=== PATIENT | male | born 1970 | race Caucasian/White ===

== ENCOUNTER 2017-11-29 19:45 | Observation (INO) | payer OTHER ==
[~2017-11-29] VITALS: Ht 182.9 cm; Wt 75.0 kg
--- NOTE | 2017-11-29 19:51 | PD ---
HPI Chief Complaint: NEURO Time Seen by Provider: 19:50 Travel History International Travel<30 days: No Contact w/Intl Traveler<30days: No Traveled to known affect area: No History of Present Illness HPI Patient has been having migraine over the past 2-3 days, and has been going to acupuncture today to try to help with that condition. Patient is also on propranolol, Zomig, and Topamax all for this migraine condition. Today over the last 90 minutes according to friend and patient both have been concerned about his trouble with recall and that he is not acting himself. Patient was able to ambulate himself onto the gurney in the emergency department, and he was also able to give the entire history himself. Remain symptom continues to be trouble with recall, including something as simple as trying to recall his office address. Per witness friend described that he looked like he was staring off into space and having trouble answering his questions, this is not usual of his migraines per patient. 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 NKDA PFSH Social History Tobacco Use: No Allergies-Medications (Allergen,Severity, Reaction): Coded Allergies: No Known Allergies (Unverified , 11/29/17) Review of Systems ROS Limitations: Other: (CONFUSION) General / Constitutional: No: Fever Eyes: No: Visual changes HENT: Positive: Headaches Cardiovascular: No: Chest Pain or Discomfort Respiratory: No: Shortness of Breath Gastrointestinal: No: Abdominal Pain Genitourinary: No: Dysuria Musculoskeletal: No: Pain Skin: No Rash Neurologic: No: Weakness Psychiatric: No: Depression Endocrine: No: Polydipsia Hematologic/Lymphatic: No: Easy Bruising Physical Exam Narrative GENERAL: SKIN: Warm and dry. HEAD: Atraumatic. Normocephalic. EYES: Pupils equal and round. No scleral icterus. No injection or drainage. ENT: No nasal bleeding or discharge. Mucous membranes pink and moist. NECK: Trachea midline. No JVD. CARDIOVASCULAR: Regular rate and rhythm. RESPIRATORY: No accessory muscle use. Clear to auscultation. Breath sounds equal bilaterally. GASTROINTESTINAL: Abdomen soft, non-tender, nondistended. MUSCULOSKELETAL: Extremities without clubbing, cyanosis, or edema. No obvious deformities. NEUROLOGICAL: Awake and alert. No obvious cranial nerve deficits. Motor grossly within normal limits. Five out of 5 muscle strength in the arms and legs. Normal speech. PSYCHIATRIC: Appropriate mood and affect; insight and judgment normal. Data Data Last Documented VS Vital Signs Date Time Temp Pulse Resp B/P (MAP) Pulse Ox O2 Delivery O2 Flow Rate FiO2 11/29/17 20:00 18 98 Room Air 11/29/17 20:00 73 11/29/17 19:58 98.9 173/105 (127) Orders Orders Electrocardiogram (11/29/17 19:55) Complete Blood Count With Diff (11/29/17 19:55) Comprehensive Metabolic Panel (11/29/17 19:55) Troponin I (11/29/17 19:55) B-Type Natriuretic Peptide (11/29/17 19:55) Prothrombin Time / Inr (Pt) (11/29/17 19:55) Act Partial Throm Time (Ptt) (11/29/17 19:55) Lipase (11/29/17 19:55) Urinalysis - C+S If Indicated (11/29/17 19:55) Thyroid Stimulating Hormone (11/29/17 19:55) Chest, Single Ap (11/29/17 19:55) Ct Brain W/O Iv Contrast(Rout) (11/29/17 19:55) Iv Access Insert/Monitor (11/29/17 19:55) Ecg Monitoring (11/29/17 19:55) Oximetry (11/29/17 19:55) Drug Screen, Random Urine (11/29/17 19:55) Alcohol (Ethanol) (11/29/17 19:55) Salicylates (Aspirin) (11/29/17 19:55) Tylenol (Acetaminophen) (11/29/17 19:55) Aspirin Chew (Aspirin Chew) (11/29/17 21:00) Us Carotid Arteries Comp Bilat (11/29/17 ) Mra Brain W/O Contrast (Cow) (11/29/17 ) Mri Brain W/O Contrast (11/29/17 ) Echo 2d Comp With Doppler (11/29/17 ) Labs Laboratory Tests Test 11/29/17 20:00 Prothrombin Time 10.7 SEC Prothromb Time International Ratio 1.1 RATIO Activated Partial Thromboplast Time 24.7 SEC Blood Urea Nitrogen 20 MG/DL Creatinine 1.30 MG/DL Random Glucose 99 MG/DL Total Protein 7.3 GM/DL Albumin 4.1 GM/DL Calcium Level 9.2 MG/DL Alkaline Phosphatase 72 U/L Aspartate Amino Transf (AST/SGOT) 16 U/L Alanine Aminotransferase (ALT/SGPT) 19 U/L Total Bilirubin 0.9 MG/DL Sodium Level 142 MEQ/L Potassium Level 3.8 MEQ/L Chloride Level 110 MEQ/L Carbon Dioxide Level 26.0 MEQ/L Anion Gap 6 MEQ/L Estimat Glomerular Filtration Rate 59 ML/MIN Troponin I LESS THAN 0.02 NG/ML B-Type Natriuretic Peptide LESS THAN 2 PG/ML Lipase 62 U/L Thyroid Stimulating Hormone 3rd Gen 1.320 uIU/ML Salicylates Level LESS THAN 1.7 MG/DL Acetaminophen Level LESS THAN 2.0 MCG/ML Ethyl Alcohol Level LESS THAN 3 MG/DL MDM Medical Decision Making Medical Screen Exam Complete: Yes Emergency Medical Condition: Yes Medical Record Reviewed: Yes Interpretation(s) Normal sinus rhythm 62 bpm some motion artifact however no evidence of any STEMI pattern. Some LVH pattern noted. Differential Diagnosis Complex migraine versus intracranial hemorrhage versus TIA versus brain mass versus aneurysm versus tox screen related Narrative Course Coagulation profile is within normal limits CT head read by radiologist as within normal limits Chest x-ray read by radiologist as no acute disease Salicylates Tylenol and alcohol negative Complete metabolic profile shows normal electrolytes, normal kidney/liver/ pancreas/TSH, negative troponin, negative beta natruretic peptide. CBC & BMP Diagram 11/29/17 20:00 Total Protein 7.3, Albumin 4.1, Calcium Level 9.2, Alkaline Phosphatase 72, Aspartate Amino Transf (AST/SGOT) 16, Alanine Aminotransferase (ALT/SGPT) 19, Total Bilirubin 0.9 Physician Communication Physician Communication Patient did not have any APHASIA/DYSARTHRIA or mutism, also did not have any severe NIH scale either so not a candidate for TPA. This was discussed with Dr. Hamilton who recommended admission for for TIA type workup including but not to be limited to MRI/mra of the brain, carotid ultrasound/echo and a neurology consultation. Diagnosis Primary Impression: TIA Admitting Information Admitting Physician Requests: Observation Tim Nelson MD Nov 29, 2017 19:51
[2017-11-29 19:58] VITALS: BP 173/105; PULSE 73; RESP 16; TEMP 98.9; O2SAT 98
[2017-11-29 20:00] VITALS: RESP 18; O2SAT 98
--- NOTE | 2017-11-29 20:12 | RADRPT ---
EXAM DATE/TIME: 11/29/2017 20:00 [facility] COMPARISON: No previous studies available for comparison. INDICATIONS : Altered mental status. RADIATION DOSE: 37.53 CTDIvol (mGy) MEDICAL HISTORY : None SURGICAL HISTORY : None. ENCOUNTER: Initial ACUITY: 1 day PAIN SCALE: 0/10 LOCATION: Bilateral head TECHNIQUE: Multiple contiguous axial images were obtained of the head. Using automated exposure control and adj ustment of the mA and/or kV according to patient size, radiation dose was kept as low as reasonably a chievable to obtain optimal diagnostic quality images. DICOM format image data is available electro nically for review and comparison. FINDINGS: CEREBRUM: The ventricles are normal for age. No evidence of midline shift, mass lesion, hemorrhage or acute in farction. No extra-axial fluid collections are seen. POSTERIOR FOSSA: The cerebellum and brainstem are intact. The 4th ventricle is midline. The cerebellopontine angle i s unremarkable. EXTRACRANIAL: The visualized portion of the orbits is intact. SKULL: The calvaria is intact. No evidence of skull fracture. CONCLUSION: Normal noncontrast head CT. Jason Calloway MD on November 29, 2017 at 20:10 Board Certified Radiologist. This report was verified electronically.
[2017-11-29 20:21] LABS: INTERNATIONAL NORMALIZED RATIO 1.1 RATIO; PROTHROMBIN TIME - PATIENT 10.7 SEC (9.8-11.6)
--- NOTE | 2017-11-29 20:21 | RADRPT ---
EXAM DATE/TIME: 11/29/2017 20:09 [facility] COMPARISON: No previous studies available for comparison. INDICATIONS : Short of breath and confusion. MEDICAL HISTORY : None. SURGICAL HISTORY : None. ENCOUNTER: Initial ACUITY: 1 day PAIN SCORE: 0/10 LOCATION: Bilateral chest FINDINGS: A single view of the chest demonstrates the lungs to be symmetrically aerated without evidence of mas s, infiltrate or effusion. The cardiomediastinal contours are unremarkable. Osseous structures are intact. CONCLUSION: Normal one view chest x-ray. Jason Calloway MD on November 29, 2017 at 20:19 Board Certified Radiologist. This report was verified electronically.
[2017-11-29 20:31] LABS: ALBUMIN 4.1 GM/DL (3.4-5.0); ALT (GPT) 19 U/L (12-78); AST (GOT) 16 U/L (15-37); BLOOD UREA NITROGEN 20 MG/DL (7-18); CALCIUM 9.2 MG/DL (8.5-10.1); CHLORIDE 110 MEQ/L (98-107); GLOMERULAR FILTRATION RATE 59 ML/MIN (>89); GLUCOSE,RANDOM 99 MG/DL (74-106); SODIUM (NA) 142 MEQ/L (136-145)
[2017-11-29 20:42] LABS: ALKALINE PHOSPHATASE 72 U/L (45-117); TOTAL BILIRUBIN ADULT 0.9 MG/DL (0.2-1.0); TOTAL PROTEIN 7.3 GM/DL (6.4-8.2); TROPONIN I LESS THAN 0.02 NG/ML (0.02-0.05)
[2017-11-29 21:00] LABS: ACETAMINOPHEN LESS THAN 2.0 MCG/ML (10.0-30.0)
[2017-11-29] MEDS ORDERED: ASPIRIN 81 MG CHEW TAB PO ONE (21:00)
[2017-11-29] MEDS ORDERED: DEXTROSE 50% IN WATER 50 ML VIAL(D50) IV PUSH PRN (21:30)
[2017-11-29] MEDS ORDERED: GLUCAGON 1 MG/ML VIAL OTHER PRN (21:30)
[2017-11-29] MEDS ORDERED: SODIUM CHLORIDE 0.9% FLUSH 10 ML FLUSH IV FLUSH PRN (21:30)
--- NOTE | 2017-11-29 21:57 | RADRPT ---
EXAM DATE/TIME: 11/29/2017 21:19 [facility] COMPARISON: No previous studies available for comparison. INDICATIONS : Transient ischemic attack. MEDICAL HISTORY : None. SURGICAL HISTORY : None. ENCOUNTER: Initial ACUITY: 2 days PAIN SCORE: 0/10 LOCATION: Bilateral neck PEAK SYSTOLIC VELOCITIES (cm/sec): ICA/CCA RATIO: Right: 0.8 Left: 0.8 ICA: Right: 75.0 Left: 79.0 CCA: Right: 95.1 Left: 101.6 ECA: Right: 58.0 Left: 85.4 VERTEBRAL: Right: 59.6 antegrade Left: 67.4 antegrade Elevated flow velocities and ICA/CCA ratios have been found to correlate with increased degrees of vessel stenosis, calculated as percentage of diameter relative to a normal segment of distal ICA/CCA FINDINGS: RIGHT CAROTID: No significant stenosis is visualized. The waveforms are within normal limits. LEFT CAROTID: No significant stenosis is visualized. The waveforms are within normal limits. VERTEBRAL ARTERIES: Antegrade flow is seen in both vertebral arteries. MISCELLANEOUS: None. CONCLUSION: Within normal limits. No significant plaque. No narrowing. Jason Calloway MD on November 29, 2017 at 21:55 Board Certified Radiologist. This report was verified electronically.
[2017-11-29] MEDS ORDERED: ZOMI5TAB2 SL (22:06)
[2017-11-29] MEDS ORDERED: PROP40TA3 PO (22:06)
[2017-11-29] MEDS ORDERED: SUCR1TAB PO (22:06)
[2017-11-29] MEDS ORDERED: TOPA50TA7 PO (22:06)
[2017-11-29] MEDS ORDERED: PANT20 PO (22:06)
--- NOTE | 2017-11-29 23:20 | HHI.HP ---
[facility] Unknown Admission Diagnosis TIA Diagnoses: Chief Complaint: confusion Travel History International Travel<30 Days: No Contact w/Intl Traveler <30 Da: No Traveled to Known Affected Are: No History of Present Illness 47 y/o male with a history of migraines since age 13, unsure if HTN, presented to the ED with complaints of confusion. 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 Patient states he was getting acupuncture done today for his back pain and chronic migraines along with a cupping treatment post acupuncture. Patient states there was no problems during the acupuncture and cupping treatment but after he became to feel a little more drowsy than normal. He felt confused and was unable to remember words or conversations. He was able to drive home from his appointment but does not remember driving home and felt very confused when he was texting his spouse. Upon arrival to his house his spouse noted he was not speaking right and he was constantly staring off into space, and made no sense when having a conversation. Upon examination patient states he feels a little more normal now and feels that it has mostly resolved but he does state that about an hour prior he did have trouble recalling his home medications. He sees Dr. Polanco for his chronic migraines. And states he was being treated at first with acupuncture for his migraines but decided to have his back pain treated as well since he was unsure of what he did to his back over the weekend. Denies any chest pain, sob. He denies having any weakness in his upper or lower extremities No history of seizures or recent illness. Neurologist: Collin Review of Systems Except as stated in HPI: all other systems reviewed are Neg Past Family Social History Past Medical History Migraines Gerd Past Surgical History Patient denies any surgical history Reported Medications Reported Meds & Active Scripts Active Reported Sucralfate 1 Gram Tab 1 Gm PO DIRECTED on empty stomach Protonix (Pantoprazole Sodium) 20 Mg Tab 20 Mg PO DAILY Topamax (Topiramate) 50 Mg Tab 50 Mg PO BID Zomig Zmt (Zolmitriptan) 5 Mg Tab 5 Mg SL ONCE PRN A second dose may be administered at least 2 hours after the first dose. Maximum dose 10 mg in 24 hours. Propranolol (Propranolol HCl) 40 Mg Tab 40 Mg PO Q12HR Allergies: Coded Allergies: No Known Allergies (Unverified , 11/29/17) Active Ordered Medications Current Medications Medications (Trade) Dose Ordered Sig/Cong Route Start Time Stop Time Status Last Admin (NS Flush) 2 ml BID IV FLUSH 11/30/17 09:00 (NS Flush) 2 ml UNSCH PRN IV FLUSH 11/29/17 21:30 (D50w (Vial) Inj) 50 ml UNSCH PRN IV PUSH 11/29/17 21:30 (Glucagon Inj) 1 mg UNSCH PRN OTHER 11/29/17 21:30 (Inderal) 40 mg Q12HR PO 11/30/17 09:00 (Topamax) 50 mg BID PO 11/30/17 09:00 (Protonix) 40 mg DAILY PO 11/30/17 09:00 Patient Own Medication PT OWN MED: ZOMIG ZMT 5... UNSCH PRN PO 11/30/17 00:15 Future Hold Family History Family history significant for HTN Social History Patient denies any tobacco, alcohol or illicit drug use Physical Exam Vital Signs Vital Signs Date Time Temp Pulse Resp B/P (MAP) Pulse Ox O2 Delivery O2 Flow Rate FiO2 11/29/17 20:00 18 98 Room Air 11/29/17 20:00 73 19 98 Room Air 11/29/17 19:58 98.9 73 16 173/105 (127) 98 Physical Exam GENERAL: This is a well-nourished, well-developed patient, in no apparent distress. SKIN: No rashes, ecchymoses or lesions. Cool and dry. HEAD: Atraumatic. Normocephalic. No temporal or scalp tenderness. EYES: Pupils equal round and reactive. ENT: Nose without bleeding, purulent drainage or septal hematoma. Airway patent. NECK: Trachea midline. No JVD or lymphadenopathy. CARDIOVASCULAR: Regular rate and rhythm without murmurs, gallops, or rubs. RESPIRATORY: Clear to auscultation. Breath sounds equal bilaterally. No wheezes , rales, or rhonchi. GASTROINTESTINAL: Abdomen soft, non-tender, nondistended. No hepato-splenomegaly , or palpable masses. No guarding. MUSCULOSKELETAL: Extremities without clubbing, cyanosis, or edema. No joint tenderness, effusion, or edema noted. No calf tenderness. NEUROLOGICAL: Awake and alert. Cranial nerves II through XII intact. Motor and sensory grossly within normal limits. Five out of 5 muscle strength in all muscle groups. Normal speech. Laboratory Laboratory Tests Test 11/29/17 20:00 Prothrombin Time 10.7 Prothromb Time International Ratio 1.1 Activated Partial Thromboplast Time 24.7 Blood Urea Nitrogen 20 Creatinine 1.30 Random Glucose 99 Total Protein 7.3 Albumin 4.1 Calcium Level 9.2 Alkaline Phosphatase 72 Aspartate Amino Transf (AST/SGOT) 16 Alanine Aminotransferase (ALT/SGPT) 19 Total Bilirubin 0.9 Sodium Level 142 Potassium Level 3.8 Chloride Level 110 Carbon Dioxide Level 26.0 Anion Gap 6 Estimat Glomerular Filtration Rate 59 Troponin I LESS THAN 0.02 B-Type Natriuretic Peptide LESS THAN 2 Lipase 62 Thyroid Stimulating Hormone 3rd Gen 1.320 Salicylates Level LESS THAN 1.7 Acetaminophen Level LESS THAN 2.0 Ethyl Alcohol Level LESS THAN 3 Result Diagram: 11/29/171999 Imaging Last Impressions Head CT 11/29/171954 Signed Impressions: Service Date/Time: Wednesday, November 29, 2017 20:00 - CONCLUSION: Normal noncontrast head CT. Jason Calloway MD Chest X-Ray 11/29/171954 Signed Impressions: Service Date/Time: Wednesday, November 29, 2017 20:09 - CONCLUSION: Normal one view chest x-ray. Jason Calloway MD Carotid Artery Ultrasound 11/29/17 0000 Signed Impressions: Service Date/Time: Wednesday, November 29, 2017 21:19 - CONCLUSION: Within normal limits. No significant plaque. No narrowing. Jason Calloway MD Caprini VTE Risk Assessment Caprini VTE Risk Assessment: No/Low Risk (score <= 1) Caprini Risk Assessment Model Point Value = 1 Point Value = 2 Point Value = 3 Point Value = 5 Age 41-60 Minor surgery BMI > 25 kg/m2 Swollen legs Varicose veins or History of unexplained or recurrent spontaneous Oral contraceptives or hormone replacement Sepsis (< 1 month) Serious lung disease, including pneumonia (< 1 month) Abnormal pulmonary function Acute myocardial infarction Congestive heart failure (< 1 month) History of inflammatory bowel disease Medical patient at bed rest Age 61-74 Arthroscopic surgery Major open surgery (> 45 min) Laparoscopic surgery (> 45 min) Malignancy Confined to bed (> 72 hours) Immobilizing plaster cast Central venous access Age >= 75 History of VTE Family history of VTE Factor V Leiden Prothrombin [id number] Lupus anticoagulant Anticardiolipin antibodies Elevated serum homocysteine Heparin-induced thrombocytopenia Other congenital or acquired thrombophilia Stroke (< 1 month) Elective arthroplasty Hip, pelvis, or leg fracture Acute spinal cord injury (< 1 month) Prophylaxis Regimen Total Risk Factor Score Risk Level Prophylaxis Regimen 0-1 Low Early ambulation 2 Moderate Order ONE of the following: *Sequential Compression Device (SCD) *Heparin 5000 units SQ BID 3-4 Higher Order ONE of the following medications: *Heparin 5000 units SQ TID *Enoxaparin/Lovenox 40 mg SQ daily (WT < 150 kg, CrCl > 30 mL/min) *Enoxaparin/Lovenox 30 mg SQ daily (WT < 150 kg, CrCl > 10-29 mL/min) *Enoxaparin/Lovenox 30 mg SQ BID (WT < 150 kg, CrCl > 30 mL/min) AND/OR *Sequential Compression Device (SCD) 5 or more Highest Order ONE of the following medications: *Heparin 5000 units SQ TID (Preferred with Epidurals) *Enoxaparin/Lovenox 40 mg SQ daily (WT < 150 kg, CrCl > 30 mL/min) *Enoxaparin/Lovenox 30 mg SQ daily (WT < 150 kg, CrCl > 10-29 mL/min) *Enoxaparin/Lovenox 30 mg SQ BID (WT < 150 kg, CrCl > 30 mL/min) AND *Sequential Compression Device (SCD) Assessment and Plan Problem List: (1) TIA (transient ischemic attack) ICD Code: G45.9 - Transient cerebral ischemic attack, unspecified (2) Migraine ICD Code: G43.909 - Migraine, unspecified, not intractable, without status migrainosus Assessment and Plan 47 y/o male with a history of migraines since age 13, unsure if HTN, presented to the ED with complaints of confusion. 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 TIA, acute Head CT reviewed and unremarkable Carotid ultrasound and unremarkable -2-D echo ordered -MRA/MRI brain ordered -NIH scale ordered, neuro checks -Consult neurology, patient known to Dr. Polanco -Lipid panel, A1c ordered -PT/OT/ST Migraines, chronic -Continue home medications to prior mate DVT prophylaxis: SCDs Discussed Condition With Patient and RN Frida Adams Nov 29, 2017 23:20
[2017-11-29] MEDS ORDERED: RABE1TAB PO (23:27)
[2017-11-30] MEDS ORDERED: ZOLMITRIPTAN 5 MG SL PRN (00:15)
[2017-11-30] MEDS ORDERED: ZOLMITRIPTAN 5 MG PO PRN (00:15)
[2017-11-30 06:38] VITALS: BP 107/61; PULSE 71; RESP 14; TEMP 97.9; O2SAT 96
[2017-11-30 08:05] LABS: CHOLESTEROL 154 MG/DL (120-200)
[2017-11-30 08:08] LABS: CHOLESTEROL/ HDL RATIO 4.03 RATIO; HDL CHOLESTEROL 38.2 MG/DL (40.0-60.0); LDL CHOLESTEROL 91 MG/DL (0-99); TRIGLYCERIDES 123 MG/DL (42-150)
[2017-11-30] MEDS ORDERED: PANTOPRAZOLE SOD 40 MG DELAYED RELEASE TAB PO SCH (09:00)
[2017-11-30] MEDS ORDERED: PROPRANOLOL HCL 40 MG TAB PO SCH (09:00)
[2017-11-30] MEDS ORDERED: SODIUM CHLORIDE 0.9% FLUSH 10 ML FLUSH IV FLUSH SCH (09:00)
[2017-11-30] MEDS ORDERED: RABEprazole SODIUM 20 MG DELAYED RELEASE TAB PO SCH (09:00)
[2017-11-30] MEDS ORDERED: TOPIRAMATE 25 MG TAB PO SCH (09:00)
--- NOTE | 2017-11-30 11:10 | MB ---
cc: Lisa Junior MD DATE OF CONSULT: 11/30/2017 HISTORY OF PRESENT ILLNESS: He is a 47-year-old with a history of an acute confusional episode. 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 He had acupuncture yesterday that was apparently directed to his back pain and after that treatment he seemed to be confused talking to the front office and subsequently was unable to use his phone well, found some messages on his phone and had difficulty handling that. His spouse came to the hospital with him and he gradually improved. He admits that he is forgetful about some events that happened yesterday, though he was able to recall most of the events. He feels just fine at this point. He did take Zomig yesterday for the migraines. He normally takes propranolol 40 mg twice per day and he takes Topamax 50 mg per day. He is on Aciphex and has had some recent Botox treatment for the migraines for which he follows with Dr. Polanco. CT brain and carotid ultrasound studies were unremarkable. NEUROLOGICAL EXAMINATION: The bedside neurological exam is essentially normal. The ocular movements and visual rucker full. Pupils relatively large and promptly reactive. No facial weakness. Speech and language are normal. Normal strength throughout. Reflexes 1-2+ and plantar responses flexor. LABORATORY DATA: INR normal. Chemistry essentially benign. LDL 91. ASSESSMENT: Probable transient global amnesia. A true transient ischemic accident is less likely. The possibility of complicated migraine syndrome is also a consideration. He never had any speech problems, paresthesias, etc., in relation to migraines in the past. PLAN: He is scheduled for MRI brain, MRA brain studies and if these are all normal, he could be discharged on aspirin, to follow with Dr. Polanco and possibly have EEG and MRA neck, etc., as outpatient. Discussed all of these with the patient and I will be happy to follow him if necessary. Lisa Junior MD OFC/SB , 10:40 AM , 11:09 AM
--- NOTE | 2017-11-30 11:43 | RADRPT ---
EXAM DATE/TIME: 11/30/2017 11:13 [facility] COMPARISON: No previous studies available for comparison. INDICATIONS : Aphasia. MEDICAL HISTORY : migraines SURGICAL HISTORY : None. ENCOUNTER: Subsequent ACUITY: 2 day PAIN SCORE: 0/10 LOCATION: cranial Please note a normal MRA of the brain does not entirely exclude the possibility of a small aneurysm, nor the possibility of distal intracranial vessel disease. TECHNIQUE: 3D time of flight MRA was performed. Source images, multiplanar STS MIP, and 3D volume MIP reconstru ctions were reviewed. FINDINGS: Anterior circulation: Distal intracranial internal carotid arteries are patent with flow extending to the middle and anteri or cerebral arteries. There is no evidence for aneurysm, vessel truncation or stenosis, and no eviden ce for vascular malformation. Posterior circulation: Symmetric distal vertebral arteries with flow extending to basilar artery. There is no evidence for aneurysm, vessel truncation or stenosis, and no evidence for vascular malformation. CONCLUSION: 1. Normal [place] MRA exam. No large vessel occlusion or significant stenosis. Alphonse Matthew MD on November 30, 2017 at 11:39 Board Certified Radiologist. This report was verified electronically.
--- NOTE | 2017-11-30 11:52 | RADRPT ---
EXAM DATE/TIME: 11/30/2017 11:13 [facility] COMPARISON: CT BRAIN W/O CONTRAST, November 29, 2017, 20:00. CHEST SINGLE AP, November 29, 2017, 20:09. INDICATIONS : Aphasia. MEDICAL HISTORY : Migraines SURGICAL HISTORY : None. ENCOUNTER: Subsequent ACUITY: 2 day PAIN SCORE: 0/10 LOCATION: cranial TECHNIQUE: Multiplanar, multisequence MRI of the brain was performed without contrast. FINDINGS: CEREBRUM: There is a focal region of hemorrhage in the cephalad right caudate/periventricular region on the gra dient echo sequences with associated subtle T2 prolongation and restricted diffusion. No definite hem osiderin ring. The ventricles are normal for age. No evidence of midline shift or mass lesion. No e xtraaxial fluid collections are seen. The pituitary gland and suprasellar cistern are normal in conf iguration. WHITE MATTER: Focal T2 prolongation in the periventricular white matter. POSTERIOR FOSSA: The cerebellum and brainstem are intact. The 4th ventricle is midline. The cerebellopontine angle is unremarkable. The cerebellar tonsils are normal in position. DIFFUSION IMAGING: No additional focal areas of restricted diffusion are seen. No evidence of acute infarction. EXTRACRANIAL: The visualized portions of the orbits and paranasal sinuses are unremarkable. CONCLUSION: 1. Focal hemorrhage in the cephalad right caudate/periventricular region without a definitive hemosid lela ring. Differential considerations include small venous angioma versus small vessel hemorrhagic i nfarction. Short-term followup MRI examination may be performed to determine stability/evolution. Alphonse Matthew MD on November 30, 2017 at 11:41 Board Certified Radiologist. This report was verified electronically.
[2017-11-30 11:55] VITALS: BP 118/84; PULSE 51; RESP 18; TEMP 97.7; O2SAT 98
[2017-11-30 13:09] LABS: AUTOMATED NEUTROPHIL # 5.6 TH/MM3 (1.8-7.7); BASOPHIL # 0.1 TH/MM3 (0-0.2); BASOPHIL % 0.9 % (0.0-2.0); EOSINOPHIL # 0.3 TH/MM3 (0-0.4); HEMATOCRIT 42.8 % (39.0-51.0); HEMOGLOBIN 15.4 GM/DL (13.0-17.0); LYMPH % 22.3 % (9.0-44.0); LYMPHOCYTE # 1.9 TH/MM3 (1.0-4.8); MEAN CELL VOLUME 90.5 FL (80.0-100.0); MEAN CORPUSCULAR HEMOGLOBIN 32.6 PG (27.0-34.0); MEAN PLATELET VOLUME 7.3 FL (7.0-11.0); MONO % 10.2 % (0.0-8.0); MONOCYTE # 0.9 TH/MM3 (0-0.9); NEUT % 63.6 % (16.0-70.0); PLATELET COUNT 209 TH/MM3 (150-450); RED BLOOD COUNT 4.73 MIL/MM3 (4.50-5.90); RED CELL DISTRIBUTION WIDTH 13.3 % (11.6-17.2); WHITE BLOOD COUNT 8.7 TH/MM3 (4.0-11.0)
[2017-11-30 13:28] LABS: BICARBONATE 22.8 MEQ/L (21.0-32.0); CALCIUM 8.8 MG/DL (8.5-10.1); CREATININE 1.04 MG/DL (0.60-1.30)
[2017-11-30 14:40] VITALS: BP 114/76; PULSE 60; RESP 16; TEMP 97.9; O2SAT 96
--- NOTE | 2017-11-30 15:09 | HHI.PR ---
Subjective Remarks Patient is in bed, he appears in nad at this time. No headache. No change in vision, no motor deficit. Says speech is back at baseline. No seizures. He denies any cp, sob, n/v/d/c. No palpitations. Objective Vitals Vital Signs Date Time Temp Pulse Resp B/P (MAP) Pulse Ox O2 Delivery O2 Flow Rate FiO2 11/30/17 14:40 97.9 60 16 114/76 (89) 96 11/30/17 11:55 97.7 51 18 118/84 (95) 98 11/30/17 06:38 97.9 71 14 107/61 (76) 96 Room Air 11/29/17 20:00 18 98 Room Air 11/29/17 20:00 73 19 98 Room Air 11/29/17 19:58 98.9 73 16 173/105 (127) 98 Result Diagram: 11/30/17 1236 11/30/17 1236 Imaging Last Impressions Head Magnetic Resonance Angiography 11/30/17 0000 Signed Impressions: Service Date/Time: Thursday, November 30, 2017 11:13 - CONCLUSION: 1. Normal cowlitz of Jack MRA exam. No large vessel occlusion or significant stenosis. Alphonse Matthew MD Brain MRI 11/30/17 0000 Signed Impressions: Service Date/Time: Thursday, November 30, 2017 11:13 - CONCLUSION: 1. Focal hemorrhage in the cephalad right caudate/periventricular region without a definitive hemosiderin ring. Differential considerations include small venous angioma versus small vessel hemorrhagic infarction. Short-term followup MRI examination may be performed to determine stability/evolution. Alphonse Matthew MD Head CT 11/29/171954 Signed Impressions: Service Date/Time: Wednesday, November 29, 2017 20:00 - CONCLUSION: Normal noncontrast head CT. Jason Calloway MD Chest X-Ray 11/29/171954 Signed Impressions: Service Date/Time: Wednesday, November 29, 2017 20:09 - CONCLUSION: Normal one view chest x-ray. Jason Calloway MD Carotid Artery Ultrasound 11/29/17 0000 Signed Impressions: Service Date/Time: Wednesday, November 29, 2017 21:19 - CONCLUSION: Within normal limits. No significant plaque. No narrowing. Jason Calloway MD Objective Remarks GENERAL: This is a very pleasant well-nourished, well-developed patient, in no apparent distress. CARDIOVASCULAR: Regular rate and rhythm without murmurs, gallops, or rubs. RESPIRATORY: Clear to auscultation. Breath sounds equal bilaterally. No wheezes , rales, or rhonchi. GASTROINTESTINAL: Abdomen soft, non-tender, nondistended. No hepato-splenomegaly , or palpable masses. No guarding. MUSCULOSKELETAL: Extremities without clubbing, cyanosis, or edema. No joint tenderness, effusion, or edema noted. No calf tenderness. NEUROLOGICAL: Awake and alert. Cranial nerves II through XII intact. Motor and sensory grossly within normal limits. Five out of 5 muscle strength in all muscle groups. Normal speech. A/P Problem List: (1) TIA (transient ischemic attack) ICD Code: G45.9 - Transient cerebral ischemic attack, unspecified (2) Migraine ICD Code: G43.909 - Migraine, unspecified, not intractable, without status migrainosus Assessment and Plan Very pleasant 47 y/o male with a history of migraines since age 13, unsure if HTN, presented to the ED with complaints of confusion. 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 TIA, acute Focal hemorrhage in the cephalad right caudate /periventricular region per MRI. This might be small angioma versus small vessell hemorrhage Consult neurosurgery , discussed with neurosurgery team will eval patient. Patient needs follow up with MRI Hypertension on admission BP 173/[address] reviewed and unremarkable Carotid ultrasound and unremarkable 2-D echo pending MRA reviewed and normal. MRI brain reviewed and findings discussed with the patient, neurology Dr Santos and neurosurgery team. MRI brain reviels Focal hemorrhage in the cephalad right caudate /periventricular region per MRI. This might be small angioma versus small vessel hemorrhage NIH scale ordered, neuro checks Consult neurology, patient known to Dr. Polanco. Seen by Dr Santos, appreciate recommendations. Lipid panel, reviewed and also discussed with the patient resultas. Fairly normal HDL 38\ A1c pending PT/OT/ST Hypertension on admission elevated BP 173/105. normotensive thereafter, Add prn vasotec, hydralazin prn Keep normotensive, normoglycemic Monitor Migraines, chronic -Continue home medications as appropriate. Doesn't have headache at this time. DVT prophylaxis: SCDs Discussed Condition With Patient, family at bedside, Dr Santos neurology. Jose Cruz LAMB from neurosurgery service Citlalli Lind MD Nov 30, 2017 15:08
[2017-11-30 15:46] LABS: HEMOGLOBIN A1C 4.9 % (4.3-6.0)
--- NOTE | 2017-11-30 16:28 | HHI.DCPOC ---
Discharge Care Plan Goals to Promote Your Health * To prevent worsening of your condition and complications * To maintain your health at the optimal level Directions to Meet Your Goals Take your medications as prescribed Follow your dietary instruction Follow activity as directed Keep your appointments as scheduled Take your immunizations and boosters as scheduled If your symptoms worsen call your PCP, if no PCP go to Urgent Care Center or Emergency Room Smoking is Dangerous to Your Health. Avoid second hand smoke Call the 24-hour hour crisis hotline for domestic abuse at Citlalli Lind MD Nov 30, 2017 16:28
[2017-11-30 16:54] VITALS: PULSE 74
--- NOTE | 2017-11-30 17:21 | MG ---
cc: Ross Croft MD, Mandeep MD EEG NUMBER: #[id number] INDICATIONS: A 47-year-old, history of headache, confusion. INTERPRETATION: Well-formed alpha activity 8-9 Hz, 20-50 microvolts. Good sinusoidal rhythms. Good anterior to posterior gradient. Attenuation background slowing with transition to drowsy state followed by stage I sleep, stage II sleep, some spindle activity. Reasonable driving with photic stimulation. Single lead EKG showing sinus rhythm. IMPRESSION: Normal awake, sleep electroencephalogram. Clinical correlation. MD VIDAL Romeo//josie , 04:56 PM , 05:05 PM
--- NOTE | 2017-11-30 17:28 | PD.OP ---
Operative Report Surgeon: Cristobal Kurtz MD Nov 30, 2017 17:28
--- NOTE | 2017-11-30 18:01 | ECHRPT ---
Indication: TIA CONCLUSIONS Normal left ventricular size. The left ventricular systolic function is hyperdynamic with an estimated ejection fraction in the ra nge of 65- 70%. Wall thickness is normal. Mild aortic dilatation at the level of the sinuses of Valsalva. Mildly dilated proximal ascending aorta. Aortic sclerosis. Trace mitral valve regurgitation. There is trace tricuspid valve regurgitation. The estimated pulmonary arterial pressure is 32 mmHg. BP: 107 / 61 HR: 71 Rhythm: Sinus MEASUREMENTS (Male / Female) Normal Values Technical Quality:Fair 2D ECHO LV Diastolic Diameter PLAX 4.6 cm 4.2 - 5.9 / 3.9 - 5.3 cm LV Systolic Diameter PLAX 3.2 cm IVS Diastolic Thickness 1.0 cm 0.6 - 1.0 / 0.6 - 0.9 cm LVPW Diastolic Thickness 1.0 cm 0.6 - 1.0 / 0.6 - 0.9 cm LV Relative Wall Thickness 0.4 RV Internal Dim ED PLAX 2.8 cm LVOT Diameter 2.4 cm Aortic Root Diameter 3.8 cm LA Systolic Diameter LX 2.8 cm 3.0 - 4.0 / 2.7 - 3.8 cm M-MODE AV Cusp Separation MM 2.4 cm DOPPLER AV Peak Velocity 128.0 cm/s AV Peak Gradient 6.6 mmHg AV Mean Gradient 4.0 mmHg AV Velocity Time Integral 26.6 cm LVOT Peak Velocity 94.7 cm/s LVOT Peak Gradient 3.6 mmHg LVOT Velocity Time Integral 20.5 cm AV Area Cont Eq vti 3.5 cm AV Area Cont Eq pk 3.3 cm Mitral E Point Velocity 84.4 cm/s Mitral A Point Velocity 65.6 cm/s Mitral E to A Ratio 1.3 LV E' Septal Velocity 6.4 cm/s Mitral E to LV E' Septal Ratio 13.1 TR Peak Velocity 233.0 cm/s TR Peak Gradient 21.7 mmHg Right Atrial Pressure 10.0 mmHg Pulmonary Artery Systolic Pressu 31.7 mmHg Right Ventricular Systolic Press 31.7 mmHg PV Peak Velocity 45.9 cm/s PV Peak Gradient 0.8 mmHg FINDINGS LEFT VENTRICLE Normal left ventricular size. The left ventricular systolic function is hyperdynamic with an estimated ejection fraction in the ra nge of 65- 70%. Wall thickness is normal. RIGHT VENTRICLE Normal right ventricular size and systolic function. LEFT ATRIUM The left atrial size is normal. RIGHT ATRIUM The right atrial size is normal. ATRIAL SEPTUM The interatrial septum not well visualized. AORTA Mild aortic dilatation at the level of the sinuses of Valsalva. Mildly dilated proximal ascending aorta. MITRAL VALVE Trace mitral valve regurgitation. AORTIC VALVE Aortic sclerosis. TRICUSPID VALVE There is trace tricuspid valve regurgitation. The estimated pulmonary arterial pressure is 31.7 mmHg. PULMONARY VALVE No pulmonary valve regurgitation or stenosis. PERICARDIUM No pericardial effusion. Willis Lopez MD, FACC (Electronically Signed) Final Date:30 November 2017 18:00
--- NOTE | 2017-11-30 19:02 | MB ---
cc: Cristobal Kurtz MD, David J MD DATE OF CONSULT: 11/30/2017 REASON FOR CONSULTATION: Right caudate area stroke. 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 He has a chronic history of migraines and has been followed by Dr. Polanco from Neurology and has been on propranolol and Topamax and Zomig. He also has had Botox injections which seemed to help with his migraines and had back discomfort from increased activity over the weekend and was getting an acupuncture treatment. Shortly thereafter he was noted not to be acting like himself. He had difficulty verbalizing what he was thinking at times and at times he was staring off in space, not concentrating. 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 Symptoms persisted for several hours and he was brought to [facility] by his significant other. He relates that after about 5 or 6 hours his symptoms started to improve overnight and he is now feeling more like his normal self, although still has this "fuzzy feeling". He was seen by Neurology and initial CT scan of the head was negative for any intracranial hemorrhage or abnormality. Carotid ultrasound is negative for any stenosis. Brain MRI and MRA were obtained. The angiogram does not reveal any large vessel occlusion or stenosis. On the MRI scan of the brain there is a focal area of increased hyperintensity in the right frontal periventricular area as well as another area with possibly some bleeding in the caudate head, the periventricular area. The concern is for small vessel infarction or possible hemorrhagic infarction, although not seen on CT scan. There is no mass effect or midline shift. The patient had an EEG which was negative. He has an echocardiogram also taken; the results are pending. The neurologist has cleared him for discharge and the neurosurgery consultation was also requested prior to his discharge. The patient is eager to go home and will have his significant other with him to monitor. PAST MEDICAL HISTORY: 1. Migraines. 2. Gastroesophageal reflux. MEDICATIONS: 1. Carafate 1 gram p.r.n. 2. Protonix 20 mg daily. 3. Topamax 50 mg b.i.d. 4. Zomig 5 mg sublingual p.r.n. 5. Propranolol 40 mg q. 12 hours. ALLERGIES: NO KNOWN DRUG ALLERGIES. SOCIAL HISTORY: Works as an change control analyst. He resides with his significant other who is an EMT. No alcohol or tobacco use. FAMILY HISTORY: Father had a stroke, otherwise unremarkable. REVIEW OF SYSTEMS: At this point denies any double vision or blurred vision. No numbness or paresthesias in the upper or lower extremities. He states that he noticed some numbness in his feet after he started Topamax but this is chronic and not new. Denies any difficulty with his speech. No blurred vision, no weakness or unsteadiness, no incontinence. No seizure-like activity. No fevers or chills. No chest pain or shortness of breath. No abdominal pain. No nausea or vomiting. The rest of the review of systems is essentially negative. LABORATORY STUDIES: White blood cell count 8.7, hemoglobin 15.4, platelet count 209. PT 10.7. INR 1.1. PTT 24.7. Sodium 140, potassium 3.7, BUN 18, creatinine 1.04, glucose 94. PHYSICAL EXAMINATION: VITAL SIGNS: Temperature 97.9, pulse is 60, respiratory rate 16, blood pressure 114/76, although on presentation his blood pressure was 173/105 last night. Oxygen saturation is 96% on room air. HEAD: Normocephalic, atraumatic. NECK: Supple with no guarding or rigidity. Trachea is midline. CHEST: Clear to auscultation bilaterally. HEART: Regular rate and rhythm. Normal S1 and S2. No murmurs. ABDOMEN: Soft, non-tender. EXTREMITIES: No cyanosis or edema. NEUROLOGIC: He is awake, alert. He is oriented. Pupils are equal and reactive. Extraocular muscles are intact. Face is symmetric. Tongue is midline. Motor strength is 5/5 in the upper and lower extremities. Negative Babinski, negative clonus. Speech is fluent. Comprehension is good. Light touch sensation is intact. No dysmetria. IMPRESSION: 1. Right caudate and subcortical areas of likely stroke but rule out small vessel disease versus embolic phenomenon. There is a small area of hemorrhagic conversion seen on the MRI scan but not the CT scan. There is no midline shift noted. 2. History of migraines. 3. Hypertension which is at this point well-controlled. PLAN: The patient does not require any neurosurgical intervention. His exam is close to baseline at this point and he has been cleared by the neurology service for discharge. I recommend avoiding any antiplatelet therapy or anticoagulation for the next 5-7 days and subsequently this can be started if deemed necessary by the neurologist. He will call Dr. Polanco's office tomorrow to follow up with him and see if any follow-up imaging studies or any workup are needed. All his questions were answered to his satisfaction. MD JONEL Roblero/MORIAH , 06:34 PM , 07:00 PM
--- NOTE | 2017-11-30 20:02 | EKG ---
Date Performed: 11/29/2017 Time Performed: 19:55:10 PTAGE: 47 years EKG: Sinus rhythm NORMAL ECG NO PREVIOUS TRACING DOCTOR: Willis Lopez Interpretating Date/Time 11/30/2017 20:01:36
== END 2017-11-30 19:09 | disposition home or self-care (01) ==
LOC: NEPC 19:45 → NEDA 21:32 → NEDH 11-30 01:58 → NEPGCP 11-30 14:04 → NEPFCDU 11-30 17:22
PROVIDERS: ADMIT Hospitalist; ATTEND Hospitalist
DX: G45.9 Transient cerebral ischemic attack, unspecified (principal); G43.909 Migraine, unspecified, not intractable, without status migrainosus; I10 Essential (primary) hypertension; K21.9 Gastro-esophageal reflux disease without esophagitis; Z79.899 Other long term (current) drug therapy
CPT/HCPCS: 70450; 70544; 70551; 71045; 80048; 80053; 80061; 80307; 83036; 83690; 83880; 84443; 84484; 85025; 85610; 85730; 93005; 93306; 93880; 95819; 99285; G0378